=== PATIENT | female | born 1970 | race Caucasian/White ===

== ENCOUNTER → 2017-05-03 | Outpatient (CLI) | payer BC ==
[2016-05-30 11:03] VITALS: BP 123/78
[~2017-05-03] MED LIST: BUDE10.2 IH; CYCL10TA2 PO; DICL75TA PO; DULO60CA6 PO; GABA-586 PO; GABA800T PO; HYDR-2758 PO; HYOS0.375 PO; LINA290C PO; METH500T7 PO; MOME17SP NS; NORT10CA3 PO; ONDA4TAB10 SL; OXYC-323 PO; OXYC10TA45 PO; PROAIR HFA8.5 GM INH; RANI150T6 PO
--- NOTE | 2017-05-03 13:44 | KCIC ---
MRI Lumbar Spine without contrast History: Low back pain, degenerative disc disease, low back pain, strain in recent weeks, previous surgery Technique: Multiplanar, multi sequential noncontrast MR imaging was performed of the lumbar spine. Contrast: None Comparison: 10/21/2014 Findings: There is some motion degradation even for repeated images Lumbar vertebral body stature and AP alignment are preserved. There is moderate degenerative disc disease L4-5 and to lesser degree at L3-4 and minimally at L5-S1. There is no significant marrow edema. There are again hemangiomas of L3 and T12. Conus terminates at L1. 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 L2-L3: Spinal canal and neural foramina are adequate. L3-L4: There is very minimal posterior bulge. Spinal canal and neural foramina are overall adequate. L4-L5: There is left laminectomy defect. There is mild right facet hypertrophic change with fluid in the right facet articulation. There is minimal buckling of the ligamentum flavum. There is shallow posterior bulge/protrusion. There is minimal narrowing of the right lateral recess. Neural foramina are not significantly narrowed. L5-S1: There is a shallow posterior protrusion, near without significant impingement of the descending S1 nerve roots. There is mild right facet hypertrophic change. Neural foramina are adequate. Impression: 1. There is moderate degenerative disc disease L4-5 and to lesser degree at L3-4, minimally at L5-S1. 2. There is no significant lumbar spinal stenosis, mild narrowing of the far right lateral recess L4-5. There is left laminectomy defect L4-5. 3. There is no significant lumbar neural foramina compromise. Electronically signed by: Rowdy Claros MD (05/03/2017 1:41 PM) [facility]-KCIC1
== END | disposition home or self-care (01) ==
LOC: KCIC MRI 12:25
PROVIDERS: ATTEND Physical Medicine & Rehabilitation
DX: M51.36 Other intervertebral disc degeneration, lumbar region (principal); M48.06 Spinal stenosis, lumbar region
CPT/HCPCS: 72148

== ENCOUNTER → 2017-08-01 | Outpatient (CLI) | payer BC ==
[2016-05-30 11:03] VITALS: BP 123/78
--- NOTE | 2017-08-01 11:33 | KCIC ---
EXAM: Brain MRI without contrast. HISTORY: Headache. TECHNIQUE: Multiplanar, multisequence magnetic resonance imaging of the brain was performed without contrast. COMPARISON: None. FINDINGS: There is no restricted diffusion to suggest acute or subacute infarction. There is no susceptibility effect to suggest hemorrhage. There is no mass effect or midline shift. There is no hydrocephalus. There are few tiny foci of signal change within the cerebral white matter, a nonspecific finding. The orbits are unremarkable. There is minimal paranasal sinus mucosal thickening. The mastoid air cells are clear. The distal right vertebral artery is hypoplastic. IMPRESSION: 1. No acute intracranial finding. 2. Few tiny foci of signal change within the cerebral white matter, a nonspecific finding. These may be artifactual. The differential also includes chronic migraine headaches and chronic small vessel disease. Electronically signed by: Juli Patterson MD (08/01/2017 11:30 AM) [facility]-KCIC1
== END | disposition home or self-care (01) ==
LOC: KCIC MRI 10:41
PROVIDERS: ATTEND Family Medicine
DX: G43.809 Other migraine, not intractable, without status migrainosus (principal); I73.9 Peripheral vascular disease, unspecified
CPT/HCPCS: 70551

== ENCOUNTER → 2018-12-12 | Outpatient (CLI) | payer BC ==
[2016-05-30 11:03] VITALS: BP 123/78
[~2018-12-12] MED LIST changes: +ALBU2.5V8 INH; -GABA-586 PO; +GABA300C18 PO; -HYDR-2758 PO; +HYDR-2761 PO; -LINA290C PO; +LINZESS290 MCG PO; -OXYC-323 PO; -OXYC10TA45 PO; +OXYC10TA46 PO; +OXYC1TAB15 PO; -PROAIR HFA8.5 GM INH; +RANI-376 PO; -RANI150T6 PO
--- NOTE | 2018-12-13 16:07 | PATHOLOGY ---
[facility] Accession Number: [id number] . 01 Material submitted: . breast - RIGHT BREAST TISSUE, 12:00. Modifiers: right, 12:00 . 01 Clinical history: . Right breast mass . 02 Diagnosis: Breast tissue, right breast mass 12:00 needle biopsies: - Fibrocystic changes with the following components: - Stromal fibrosis. - Duct ectasia. - Cystic change. - Apocrine metaplasia. (JPM:hand bookbinder; 12/13/2018) MBR/12/13/2018 . 02 Comment: There is no atypia or evidence of malignancy. (JPM:hand bookbinder; 12/13/2018) . 02 Electronically signed: . Rafael Cano MD, Pathologist NPI- [id number] . 01 Gross description: . Received in formalin labeled "December, right breast 12:00," are multiple needle cores of yellow-smith fibrofatty tissue measuring 2.0 x 0.7 x 0.2 cm in aggregate dimensions. The tissue is submitted in its entirety in cassette A1 through A3. The cold ischemic time is 4 minutes. The total formalin fixation time is 9 hours and 18 minutes. (TSD; 12/12/2018) TOB/TOB . 02 Pathologist provided ICD-10: N60.31, N60.41, N60.11 . 02 CPT . 435300 Specimen Comment: A courtesy copy of this report has been sent to Specimen Comment: [phone], , . Specimen Comment: Report sent to ,DR BARNES / DR MOORE Performed at: [address], [place] [employer], [place] [id number] MD Mark Anthony Silva MD Phone: [phone] Performed at: [address] [id number] MD Rafael Cano MD Phone: [phone]
--- NOTE | 2018-12-16 09:57 | RAD ---
Examination: US GUID NDL PLACE/ASPI/BX History: Right breast mass Comparison/Correlation: None Findings: Risks and benefits of ultrasound-guided biopsy of the right upper breast mass were discussed with the patient and informed consent was obtained. Cleansing with Betadine was performed overlying the right breast 12:00 region. Sterile towels were utilized for draping. Sterile gel and sterile probe cover utilized. Approximately 6 cc 1% lidocaine was administered along the expected course of the biopsy needle. Inferolateral oblique approach was utilized. Small scalpel incision was made. An introducer was placed. 12-gauge core biopsy needle was placed into the right breast mass and adjacent regions. 6 passes were made and samples were placed in a formalin jar. Some of the samples were very friable. Biopsy clip marker was subsequently placed at the conclusion of the procedure into the right breast mass via the introducer. Impression: Right breast 12:00 region core biopsy was performed. Specimens sent to the lab. Patient tolerated procedure well without immediate complications. Electronically signed by: Erlin Baltazar MD (12/16/2018 9:54 AM) [id number]
--- NOTE | 2018-12-25 16:58 | RAD ---
DATE: 12/12/2018 EXAM: DIGITAL DIAGNOSTIC RT HISTORY: The patient has just undergone ultrasound-guided biopsy of the right breast. COMPARISON: 11/13/2018 diagnostic mammogram bilateral This study was interpreted with the benefit of Computerized Aided Detection (CAD). Breast Density: HETERO The breast parenchyma is heterogenously dense, which could reduce sensitivity of mammography. Breast parenchyma level C. FINDINGS: Focal asymmetry involving the right anterior to mid breast is present with biopsy clip marker immediately superficial to it on the MLO projection. Soft tissue gas noted superficial to it in this region as well. IMPRESSION: Post procedure. BI-RADS CATEGORY: 4 SUSPICIOUS ABNORMALITY- BIOPSY SHOULD BE CONSIDERED RECOMMENDED FOLLOW-UP: BIO BIOPSY RECOMMENDED PQRS compliance statement: Patient information was entered into a reminder system with a target due date pending biopsy results for the next mammogram. Mammography is a sensitive method for finding small breast cancers, but it does not detect them all and is not a substitute for careful clinical examination. A negative mammogram does not negate a clinically suspicious finding and should not result in delay in biopsying a clinically suspicious abnormality. "Our facility is accredited by the [employer] Mammography Program."
== END | disposition home or self-care (01) ==
LOC: US 11:23
PROVIDERS: ATTEND Surgery
DX: N60.31 Fibrosclerosis of right breast (principal); N60.41 Mammary duct ectasia of right breast; N60.81 Other benign mammary dysplasias of right breast; Z91.040 Latex allergy status; Z91.048 Other nonmedicinal substance allergy status
CPT/HCPCS: 19083; 77065; 88305; C1713; 19081; 76942

== ENCOUNTER → 2019-07-07 | Outpatient (CLI) | payer BC ==
[2016-05-30 11:03] VITALS: BP 123/78
--- NOTE | 2019-07-07 14:16 | KCIC ---
EXAM: Chest, 2 views. HISTORY: Cough. COMPARISON: 06/13/2016 FINDINGS: 2 views of the chest are obtained. There is no infiltrate, effusion or pneumothorax. The heart is normal in size. There are healed lateral right rib fractures. IMPRESSION: No acute pulmonary finding. Electronically signed by: Juli Patterson MD (07/07/2019 2:14 PM) [facility]
== END | disposition home or self-care (01) ==
LOC: KCIC 13:56
PROVIDERS: ATTEND Family Medicine
DX: R05 Cough (principal)
CPT/HCPCS: 71046

== ENCOUNTER 2020-10-17 18:20 | Emergency (ER) | payer BC ==
[~2020-10-17] VITALS: Ht 165.1 cm; Wt 75.0 kg
[2020-10-17 18:20] VITALS: BP 130/72
[~2020-10-17 18:20] MED LIST changes: +METH-561 PO; -METH500T7 PO
[2020-10-17] MEDS ORDERED: CYCLOBENZAPRINE 10 MG TABLET. PO ONE (18:30)
[2020-10-17] MEDS ORDERED: IBUPROFEN 400 MG TABLET. PO ONE (18:30)
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
[2020-10-17] MEDS ORDERED: CYCL10TA2 PO (19:31)
== END 2020-10-17 19:50 | disposition admitted as inpatient to this hospital (09) ==
LOC: ER 18:20
DX: S39.012A Strain of muscle, fascia and tendon of lower back, initial encounter (principal); Z91.040 Latex allergy status; Z88.8 Allergy status to other drugs, medicaments and biological substances; V98.8XXA Other specified transport accidents, initial encounter; Y93.89 Activity, other specified; Y92.413 State road as the place of occurrence of the external cause; Y99.8 Other external cause status
CPT/HCPCS: 72100; 99283

== ENCOUNTER → 2021-01-07 | Outpatient (CLI) | payer BC, OTHER ==
[~2021-01-07] MED LIST changes: +BUPR150T21 PO; +CELE200C PO; +OXYB10TA26 PO; +OXYC1TAB22 PO; +SUMA100T4 PO; +TOPI100T8 PO
[2021-01-07 13:07] LABS: BILIRUBIN,URINE NEGATIVE (NEG); CLARITY,URINE CLEAR; COLOR,URINE YELLOW; NITRITE,URINE POSITIVE (NEG); PROTEIN,URINE NEGATIVE (NEG-TRACE); UROBILINOGEN,URINE 0.2 mg/dL (0.2 mg/dL)
[2021-01-07 13:17] LABS: BACTERIA,URINE MANY /HPF (0-FEW); WBC,URINE >40 /HPF (0-4)
[2021-01-07 13:44] LABS: BASO % 1 % (0-3); EOS # 0.2 x10^3/uL (0.0-0.7); EOS % 3 % (0-3); HEMATOCRIT 37.4 % (36.0-47.0); HEMOGLOBIN 12.7 g/dL (12.0-15.5); LYMPH # 1.5 x10^3/uL (1.0-4.8); LYMPH % 24 % (24-48); MEAN CORPUSCULAR HEMOGLOBIN 30 pg (25-35); MEAN CORPUSCULAR HGB CONC 34 g/dL (31-37); MEAN CORPUSCULAR VOLUME 87 fL (79-100); MONO # 0.4 x10^3/uL (0.0-1.1); MONO % 6 % (0-9); NEUT # 4.1 x10^3/uL (1.8-7.7); NEUT % 67 % (31-73); PLATELET COUNT 268 x10^3/uL (140-400); RED CELL DISTRIBUTION WIDTH 14.4 % (11.5-14.5); WHITE BLOOD COUNT 6.2 x10^3/uL (4.0-11.0)
[2021-01-07 14:22] LABS: ALBUMIN 3.9 g/dL (3.4-5.0); ALBUMIN/GLOBULIN RATIO 1.1 (1.0-1.7); CALCIUM 8.8 mg/dL (8.5-10.1); CREATININE 0.7 mg/dL (0.6-1.0); GFR 88.9; POTASSIUM 3.3 mmol/L (3.5-5.1); TOTAL BILIRUBIN 0.2 mg/dL (0.2-1.0); TOTAL PROTEIN 7.3 g/dL (6.4-8.2)
== END ==
LOC: SURGPAT 12:34
PROVIDERS: ATTEND Obstetrics & Gynecology
DX: Z01.812 Encounter for preprocedural laboratory examination (principal); N81.10 Cystocele, unspecified; Z20.822 Contact with and (suspected) exposure to COVID-19
CPT/HCPCS: 80053; 81001; 85025; 87077; 87086; 87186; U0003; U0005

== ENCOUNTER 2021-01-13 06:56 | Observation (INO) | payer BC ==
[2021-01-07 13:30] VITALS: BP 119/76
[~2021-01-13] VITALS: Ht 165.1 cm; Wt 87.5 kg
[~2021-01-13 06:56] MED LIST changes: +HYDROmorphone 2 MG/ML VIAL IVP PRN; +IV RINGERS,LACTATED 1000ML 1,000 ML IV SCH; +MORPHINE SULFATE 2 MG/ML VIAL. IVP PRN; +PROCHLORPERAZINE 10 MG/2 ML VIAL. IVP PRN; +fentaNYL PF VIAL 100 MCG/2 ML VIAL IVP PRN
[2021-01-13] MEDS ORDERED: SCOPOLAMINE 1.5MG PATCH. TD ONE (07:30)
[2021-01-13] MEDS ORDERED: ONDANSETRON PF 4 MG/2 ML VIAL. ONE (08:04)
[2021-01-13] MEDS ORDERED: PROPOFOL 10 MG/ML (20ML) VIAL. IV ONE (08:04)
[2021-01-13] MEDS ORDERED: DEXAMETHASONE SOD PHOS 4 MG/ML VIAL ONE (08:04)
[2021-01-13] MEDS ORDERED: BUPIVACAINE-EPI 0.25% 30 ML VIAL KIT. ONE ×2 (08:04→08:18)
[2021-01-13] MEDS ORDERED: MIDAZOLAM HCL/PF 2 MG/2 ML VIAL. ONE (08:04)
[2021-01-13] MEDS ORDERED: LIDOCAINE 2% PF 5 ML VIAL. ONE (08:04)
[2021-01-13] MEDS ORDERED: ESTROGENS, CONJ VAGINAL CREAM 30GM TUBE. ONE (08:04)
[2021-01-13] MEDS ORDERED: KETOROLAC 60 MG/2 ML VIAL. ONE (08:53)
[2021-01-13] MEDS ORDERED: KETAMINE HCL IN NACL, ISO-OSM 50 MG/5 ML SYRINGE ONE (08:53)
[2021-01-13] MEDS ORDERED: KETOROLAC 30 MG/ML VIAL. ONE (08:53)
[2021-01-13] MEDS ORDERED: NORMAL SALINE MC ONE (09:01)
[2021-01-13] MEDS ORDERED: PROPOFOL 50 ML IV ONE (09:17)
[2021-01-13] MEDS ORDERED: SEVOFLURANE 61 TO 120 MINUTES. IH ONE (10:07)
--- NOTE | 2021-01-13 10:17 | PDOC ---
BRIEF OPERATIVE NOTE Date: January 13, 2021 Pre-Op Diagnosis urinary incontinence, cystocele Post-Op Diagnosis same but also vaginal cuff prolapse/vault Procedure Performed anterior repair, TVT abbrevo and cystoscopy Surgeon Dr. Mary Catalan Braille Duplicating Machine Operator MIHAELA Salazar Anesthesiologist Dr. Farr Anesthesia Type: General Blood Loss 10cc IV Fluid see anesthesia records Urine Output 100cc straight cath prior to procedure, then more during cystoscopy Specimens Obtained anterior vaginal mucosa (not sent) Findings 3rd degree cystocele, hypermobile surethera, 2 degree vault prolapse also Complications none Operative Note [id number] MARY CATALAN MD January 13, 2021 10:17
[2021-01-13] MEDS ORDERED: 0.9 % SODIUM CHLORIDE 10 ML DISP.SYRIN. IV PRN (10:30)
[2021-01-13] MEDS ORDERED: diphenhydrAMINE HCL 25 MG CAPSULE PO PRN (10:30)
[2021-01-13] MEDS ORDERED: MAG HYDROX/ALUMINUM HYD/SIMETH 30 ML ORAL.SUSP PO PRN (10:30)
[2021-01-13] MEDS ORDERED: diphenhydrAMINE 50 MG/ML VIAL IV PRN (10:30)
[2021-01-13] MEDS ORDERED: NALOXONE 0.4 MG/ML VIAL. IV PRN (10:30)
[2021-01-13] MEDS ORDERED: CALCIUM CARBONATE 500 MG TAB.CHEW PO PRN (10:30)
[2021-01-13] MEDS ORDERED: SIMETHICONE 80 MG TAB.CHEW PO PRN (10:30)
[2021-01-13 11:10] VITALS: BP 125/78
[2021-01-13 11:30] VITALS: BP 113/66
[2021-01-13 11:45] VITALS: BP 110/69
[2021-01-13 12:15] VITALS: BP 123/76
[2021-01-13] MEDS: HYDROcodone/APAP 5/325MG 1 TAB TABLET PO PRN ×2 (12:17→16:30)
--- NOTE | 2021-01-13 13:59 | OP ---
DATE OF SURGERY: 01/13/2021 PREOPERATIVE DIAGNOSIS: Cystocele with urinary incontinence. POSTOPERATIVE DIAGNOSIS: Cystocele with urinary incontinence, but during this procedure, it was more obvious that she had also vaginal cuff and vault prolapse as well. PROCEDURES: Anterior repair, TVT-Abbrevo and cystoscopy. SURGEON: Mary Wen MD. ARMHOLE PRESSER: MIHAELA Salazar. ANESTHESIOLOGIST: Angelito Farr MD. ESTIMATED BLOOD LOSS: 10 mL. URINE OUTPUT: 100 mL straight cath prior to procedure and then more during the cystoscopy. IV FLUIDS: Please see anesthesia records. SPECIMEN: An anterior vaginal mucosa, but that was not sent to pathology. FINDINGS: Third-degree cystocele, hypermobile urethra and second-degree vaginal vault prolapse also. COMPLICATIONS: None. DESCRIPTION OF PROCEDURE: This patient was taken to the operating room where general anesthesia was placed. The patient was placed in a dorsal lithotomy position in [facility]. The patient's vagina was prepped and draped in the normal sterile fashion and a straight cath urine was done prior to my arrival. Upon my arrival, a timeout was performed. Once everyone agreed on the patient, the site, the procedure, the antibiotics, the procedure was initiated. A weighted speculum was placed in the patient's vagina. Allis clamps were placed on either end of the vaginal cuff and pulled down; 30 mL of a dilute solution with 1 part local 0.25% Marcaine with epinephrine and 4 parts injectable saline was used to inject the anterior defect and then suburethral out laterally as well where the sling would go. A scalpel was used to make a small vertical incision. Allis clamps were placed on either side of this and the Metzenbaum scissors were used to open up the anterior defect. Allis clamps were placed along the way until we were a couple centimeters below the urethra. This area was left for the bladder sling later. Fanning them out and opening them up, the Metzenbaum scissors were used to sharply incise the edges and then an open Ray-Ignacia 4 x 4 was used to gently pushed up and peel off the bladder from the anterior vaginal mucosa in an avascular plane and it peeled up very nicely on both sides. Once this was done, a series of, I believe 6 or 7 interrupted 2-0 Vicryl sutures were placed and tagged and then going back and reducing the defect and tying them reducing the bladder, so six or seven 2-0 Vicryl sutures were used and another imbricating one was placed in the middle for hemostasis just to make sure there was no peaking out of the bladder. The bladder reduced excellent. The problem is she also had a little bit of vault prolapse that was not evident in the office with the large cystocele. The rectocele still looked pretty good, but the vault prolapse was a little more prominent, so the cystocele was reduced. The Metzenbaum scissors were used to trim off the excess vaginal mucosa on both sides and a ____ 2-0 Vicryl was used to close this defect in the anterior to posterior running locked fashion. Once this was done, an Allis clamp was placed 1 cm below the urethra. A small vertical 1-cm incision was made with the scalpel. Metzenbaum scissors were used to dissect out laterally to the obturator foramen until that wing guide applicator could easily be slid in on both sides. A marking pen had previously been used to olimpia the urethra 2 cm up and then 2 cm out from the groin fold for the expected location for the sling. Once this was marked, the wing guide applicator was placed on the patient's right side and the TVT obturator handle was placed through and around and came out very close to the marking. A small incision was made in the skin where the device was poked through. A curved Graciela was placed over the white sheath. The hand-held bus driver was removed from below and it was pulled through on this side. This was done exactly the same on the left side, placing the wing guide applicator in, placing the sling around and it came out exactly on the marking this time, making a small incision in the skin, letting the sling poke through, grabbing it with a curved Graciela clamp, removing it from the handheld driving device, pulling it through not tight, but the sling was straightened in the middle with the Prolene marker in the middle, the cystoscopy was performed at this point. A 400-500 mL of fluid was placed in the bladder with the bubble. There was no bleeding. The fluid returning was clear when I put the sheath in before I placed the scope in and clear fluid returned. Again, the bladder filled easily. The bubble was seen. Both ureteral openings were seen. There was no sling on either side. No trauma, no blood, so this was ended. Some of the fluid was drained through the sheath again and then it was removed. A #6 Hegar dilator was obtained. The sling was snug around it. The plastic sheaths were cut off the end and removed from the sling. The Prolene was used to make sure it was centered and then those were removed as well. Once this was done, the Prolene was clipped in the midline as it was straightened in the middle and then the dilator was removed. FloSeal was placed over the sling and it was closed in a 2-layer closure, first with Monocryl in the subQ and then 2-0 Vicryl over the top. There was thinning on the left side, but no buttonholing on either side. I did place an imbricating stitch just in the upper corner to make sure it did not wear through at the corner where I could see it thinning with excellent results. The thighs were cleaned and Dermabond was used on the skin there where the lateral groin markings were for the sling. All sponge, lap and needle counts were correct x 2 by OR personnel. The patient was awakened from anesthesia and brought to recovery room in stable condition. LASHON/ALVAREZ/WENDI DR: LASHON/chelsy TID: [id number]
[2021-01-13 14:30] VITALS: BP 115/73
--- NOTE | 2021-01-13 16:00 | NUR ---
This RN spoke with Dr. Wen via telephone. Update given regarding pt status. Notified that patient has voided x 2 since arrival on OB floor. Pt last ambulated to bathroom independently and voided 200 cc of blood tinged, clear urine. Pt has tolerated a clear liquid tray as well as water and sprite. Orders recieved, pt may discharge pt home.
[2021-01-13 16:32] VITALS: BP 119/81
== END 2021-01-13 17:28 | disposition home or self-care (01) ==
LOC: SURG 06:56 → 3 SO LND 10:32
PROVIDERS: ADMIT Obstetrics & Gynecology; ATTEND Obstetrics & Gynecology
DX: N81.10 Cystocele, unspecified (principal); R32 Unspecified urinary incontinence; N36.41 Hypermobility of urethra; N81.6 Rectocele
CPT/HCPCS: 36415; 57240; 86850; 86900; 86901; A4314; A4364; A4556; A4930; C1771; G0378; G0379; J0690; J1100; J1885; J2250; J2405; J2704; A4222

== ENCOUNTER → 2022-01-09 | Outpatient (CLI) | payer BC ==
[~2022-01-09] MED LIST changes: +CONTRAST GIVEN. MC PRN; +CYCL10TA19 PO; -CYCL10TA2 PO; -DULO60CA6 PO; +DULO60CA7 PO; -HYDROmorphone 2 MG/ML VIAL IVP PRN; +IOHEXOL 240 MG/ML 50ML VIAL. PO ONE; +IOHEXOL 300 MG/ML 100ML VIAL. IV ONE; -IV RINGERS,LACTATED 1000ML 1,000 ML IV SCH; -MOME17SP NS; +MOME17SP5 NS; -MORPHINE SULFATE 2 MG/ML VIAL. IVP PRN; -PROCHLORPERAZINE 10 MG/2 ML VIAL. IVP PRN; -fentaNYL PF VIAL 100 MCG/2 ML VIAL IVP PRN
--- NOTE | 2022-01-09 12:20 | KCIC ---
EXAM: Abdomen and pelvis CT with intravenous contrast. HISTORY: Chronic constipation.. TECHNIQUE: Computed tomographic images of the abdomen and pelvis were obtained following the administ ration of intravenous contrast. Multiplanar reformatting was performed. *One or more of the following individualized dose reduction techniques were utilized for this examina tion: 1. Automated exposure control. 2. Adjustment of the mA and/or kV according to patient size. 3. Use of iterative reconstruction technique. COMPARISON: None. FINDINGS: Evaluation of the lower thorax demonstrates no infiltrate or pleural effusion. There is a s mall amount of fluid adjacent to surgical clips at the gastroesophageal junction, likely due to fluid within a pericardial recess rather than postoperative in etiology. There is biliary ductal dilatatio n, likely due to reservoir effect status post cholecystectomy. No pancreatic lesion is seen. The sple en is normal in size. The adrenal glands are unremarkable. There is no suspicious renal lesion. There is no appendicitis. There is moderate colonic and rectal stool. There is no evidence of bowel o bstruction. The aorta is normal in caliber. There is no lymphadenopathy. The urinary bladder is unrem arkable. There is a 1.6 cm peripherally calcified nodule within the left hemipelvis, likely due to pr ior fat infarction. There is no acute or suspicious osseous finding. There is degenerative change dru ian at L4-L5. IMPRESSION: 1. Moderate colonic and rectal stool. 2. Biliary ductal dilatation, likely due to reservoir effect status post cholecystectomy. 3. Postoperative change at the gastroesophageal junction. Electronically signed by: Juli Patterson MD (01/09/2022 12:17 PM) [id number]
== END ==
LOC: KCIC CT 09:52
PROVIDERS: ATTEND Family Medicine
DX: K83.8 Other specified diseases of biliary tract (principal); K56.41 Fecal impaction; R19.09 Other intra-abdominal and pelvic swelling, mass and lump; Z90.49 Acquired absence of other specified parts of digestive tract; M47.816 Spondylosis without myelopathy or radiculopathy, lumbar region; Z98.890 Other specified postprocedural states
CPT/HCPCS: 74177; Q9966; Q9967